=== PATIENT | male | born 1965 | race Caucasian/White ===

== ENCOUNTER 2022-12-27 15:23 | Emergency (ER) | payer BC ==
[~2022-12-27] VITALS: Ht 180.3 cm; Wt 127.2 kg
[2022-12-27 16:02] VITALS: BP 155/96
[2022-12-27 16:04] LABS: GFR FOR AFR.AMER. > 60 ML/MIN (>=60 (CALC)); GFR OTHER RACES > 60 ML/MIN (>=60 (CALC))
[2022-12-27 16:08] LABS: BASO% 0.4 % (0-3); HEMATOCRIT 49.5 % (39.0-50.0); HEMOGLOBIN 16.1 g/dl (14.0-18.0); IMMATURE GRANULOCYTES 0.1 % (0.0-5.0); LYMPH% 19.9 % (15-41); MEAN CELL VOLUME 83.2 fL CALC (80.0-100.0); MEAN CORPUSCULAR HGB 27.1 pG CALC (26.0-32.0); MEAN CORPUSCULAR HGB CONC 32.5 g/dL CAL (32.0-36.0); MONO% 6.3 % (2-13); NEUT# 5.07 thou/uL (1.82-7.42); NEUT% 72.3 % (42-76); RED BLOOD COUNT 5.95 mill/uL (4.70-6.10); RED CELL DISTRI WIDTH 13.1 % (11.5-15.5)
[2022-12-27 16:28] LABS: ALBUMIN 5.1 g/dL (3.2-5.0); ALKALINE PHOSPHATASE 76 u/l (38-126); BILIRUBIN, TOTAL 0.5 mg/dL (0.2-1.3); BUN 18 mg/dL (9-20); BUN/CREATININE RATIO 20 (12-20 (CALC)); CARBON DIOXIDE 24 mmol/l (22-30); CHLORIDE 106 mmol/l (95-108); CREATININE 0.9 mg/dL (0.7-1.3); GFR FOR AFR.AMER. > 60 ML/MIN (>=60 (CALC)); GFR OTHER RACES > 60 ML/MIN (>=60 (CALC)); SGOT/AST 38 u/l (17-59); SODIUM 142 mmol/l (137-146); TOTAL PROTEIN 8.7 g/dL (6.3-8.2)
[2022-12-27 16:31] VITALS: BP 143/85
[2022-12-27 16:45] LABS: ANION GAP 17 (6-22 (CALC)); POTASSIUM 4.5 mmol/l (3.5-5.1)
[2022-12-27 17:01] VITALS: BP 124/68
[2022-12-27] MEDS ORDERED: RYBELSUS3 MG (17:02)
[2022-12-27] MEDS ORDERED: FENOFIBRATE54 MG PO (17:03)
[2022-12-27] MEDS ORDERED: FARXIGA10 MG (17:03)
[2022-12-27] MEDS ORDERED: LOSARTAN POTAS100 MG PO (17:04)
[2022-12-27] MEDS ORDERED: LOSARTAN POTASS50 MG PO (17:04)
[2022-12-27] MEDS ORDERED: PIOGLITAZONE HY15 MG (17:05)
[2022-12-27] MEDS ORDERED: TESTOST CYP200 MG/ML IM (17:05)
[2022-12-27] MEDS ORDERED: NIACIN ER1000 MG (17:05)
[2022-12-27 17:20] VITALS: BP 124/68
[2022-12-27] MEDS ORDERED: TYLENOL # 31 TA1 PO (17:27)
[2022-12-27 18:30] LABS: URINE BILIRUBIN - DIPSTICK NEGATIVE (NEGATIVE); URINE BLOOD DIPSTICK NEGATIVE (NEGATIVE); URINE COLOR YELLOW; URINE GLUCOSE - DIPSTICK >=1000 mg/dL (NEGATIVE); URINE KETONE 15 mg/dL (NEGATIVE); URINE LEUK ESTERASE NEGATIVE (NEGATIVE); URINE PH 5.5 (4.5-8.0); URINE PROTEIN - DIPSTICK NEGATIVE (NEG-TRACE); URINE SPECIFIC GRAVITY >=1.030; URINE UROBILINOGEN - DIPSTICK 0.2 E.U./dL (0.2)
[2022-12-27 18:33] LABS: URINE NITRITE - DIPSTICK NEGATIVE (Negative)
[2023-01-15] MEDS ORDERED: IMITREX100 MG PO (14:17)
== END 2022-12-27 18:24 | disposition home or self-care (01) | DRG 395 ==
LOC: ED 15:23 → ED-I 16:15 → ED 16:15 → ED-I 16:15 → ED 16:50 → MS2 16:51 → ED 16:51 → MS2 18:24
PROVIDERS: Family Medicine
DX: K42.9 Umbilical hernia without obstruction or gangrene (principal); I10 Essential (primary) hypertension; E11.9 Type 2 diabetes mellitus without complications

== ENCOUNTER 2023-03-22 11:10 | Day surgery (SDC) | payer BC ==
[~2023-03-22] VITALS: Ht 180.3 cm; Wt 129.3 kg
[~2023-03-22 11:10] MED LIST: FARXIGA10 MG; FENOFIBRATE54 MG PO; IMITREX100 MG PO; LOSARTAN POTAS100 MG PO; LOSARTAN POTASS50 MG PO; NIACIN ER1000 MG; PIOGLITAZONE HY15 MG; RYBELSUS3 MG; TESTOST CYP200 MG/ML IM; TYLENOL # 31 TA1 PO
[2023-03-22] MEDS ORDERED: HYDROCO/APAP1 TA9 PO (13:22)
[2023-03-22 14:14] VITALS: BP 144/88
== END 2023-03-22 14:04 | disposition home or self-care (01) | DRG 355 ==
LOC: ORM 11:10
PROVIDERS: ATTEND Surgery
PROC: 0WUF0JZ Supplement Abdominal Wall with Synthetic Substitute, Open Approach (ICD-10-PCS; principal; 2023-03-22)
DX: K42.9 Umbilical hernia without obstruction or gangrene (principal); I10 Essential (primary) hypertension; E11.9 Type 2 diabetes mellitus without complications; Z79.84 Long term (current) use of oral hypoglycemic drugs
CPT/HCPCS: J0690